=== PATIENT | female | born 2000 | race Caucasian/White ===

== ENCOUNTER 2022-12-25 12:45 | Emergency (ER) | payer MEDICAID, OTHER ==
[~2022-12-25] VITALS: Ht 157.5 cm; Wt 68.0 kg
[2022-12-25] MEDS ORDERED: IBUPROFEN 600 MG (MOTRIN) TAB PO ONE (13:15)
--- NOTE | 2022-12-25 13:15 | ED EENT ---
History of Present Illness General Chief Complaint: Oral/Throat Problems Stated Complaint: SORE THROAT | BILAT EAR ACHE Nursing Triage Note: PT AMBULATE TO TRIAGE WITHOUT DIFFICULTY WITH C/O SORE THROAT AND BILAT EAR PAIN SINCE THURSDAY. PT REPORTS TAKING NYQUIL AND IBUPROFEN FOR THE PAIN. PT REPORTS VOMITING X2 THIS MORNING. Source: patient Exam Limitations: no limitations History of Present Illness Date Seen by Provider: December 25, 2022 Time Seen by Provider: 13:09 Initial Comments Patient is a 22-year-old female who presents to ED with sore throat difficulty swallowing since Thursday. She states her throat hurts especially with eating. Noted redness to the back part of the throat. Patient states she feels feverish with chills and weakness.. She reports right ear and left ear pain with runny nose that started today. she reports coughing up greenish sputum production. Denies any chest pain or shortness of breath. She reports sinus pressure. She states she vomited mucus twice this morning. has been taken NyQuil without much improvement. She states she did feel little bit better yesterday but today symptoms are worse. History of asthma. Denies any wheezing. Denies diarrhea, neck pain, visual changes, headache, abdominal pain, dysuria, hematuria or concern for . Allergies and Home Medications Allergies Coded Allergies: ziprasidone (Verified Allergy, Unknown, 12/25/22) Patient Home Medication List Home Medication List Reviewed: Yes Amoxicillin (Amoxicillin) 875 Mg Tablet, 875 MG PO BID Prescribed by: VALENTINA MATIAS on 12/25/22 1341 Review of Systems Review of Systems Constitutional: chills; No diaphoresis; fever, malaise, weakness Eyes: Denies Blurred Vision, Denies Drainage, Denies Decreased Acuity Ears: Pain; Denies Tinnitus, Denies Bloody Discharge, Denies Clear Discharge Nose: congestion Throat: pain, swelling Respiratory: cough; No short of breath Cardiovascular: No chest pain Gastrointestinal: No abdominal pain, No diarrhea, No nausea; vomiting Musculoskeletal: No back pain, No joint pain Skin: No change in color, No change in hair/nails All Other Systems Reviewed Negative Unless Noted: Yes Past Zadmctm-Abinvu-Ucnrem Hx Patient Social History Tobacco Use?: Yes Tobacco type used: Cigarettes Smoking Status: Light Tobacco Smoker Smokeless Tobacco Frequency: Never a User Use of E-Cig and/or Vaping dev: Yes E-Cig or Vaping type used: Nicotine Use of E-Cig and/or Vaping Robbie: Light User Substance use?: Yes Substance type: Marijuana Substance frequency: Daily Alcohol Use?: Yes Alcohol Frequency: Couple times a week Pt feels they are or have been: No Physical Exam Vital Signs Vital Signs - First Documented 12/25/22 12:54 Temp 36.8 Pulse 82 Resp 17 B/P (MAP) 132/86 (101) O2 Delivery Room Air Height, Weight, BMI Height: '" Weight: lbs. oz. kg; 27.00 BMI Method: General Appearance: WD/WN, no apparent distress Eyes: bilateral eye normal inspection, bilateral eye PERRL, bilateral eye EOMI Ears: left ear TM red, left ear TM bulging Nose: other (Rhinorrhea) Mouth/Throat: other (Oropharynx with erythema, swelling without exudate. Bilateral cervical adenopathy) Neck: non-tender, full range of motion, supple, other (No meningeal signs) Cardiovascular: regular rate, rhythm, no edema, no gallop, no JVD Respiratory: chest non-tender, lungs clear, normal breath sounds, no respiratory distress, no accessory muscle use Gastrointestinal: normal bowel sounds, non tender, soft, no organomegaly Neurologic/Psychiatric: dial polisher II-XII nml as tested, no motor/sensory deficits, alert, normal mood/affect Skin: normal color, warm/dry Progress/Results/Core Measures Results/Orders Lab Results Laboratory Tests Test 12/25/22 13:06 Range/Units Influenza Type A (RT-PCR) Not Detected Not Detecte Influenza Type B (RT-PCR) Not Detected Not Detecte SARS-CoV-2 RNA (RT-PCR) Not Detected Not Detecte Group A Streptococcus Screen POSITIVE H NEGATIVE My Orders Orders - FRANCIS STEWART Rapid Strep A Screen (12/25/22 13:09) Covid 19 Inhouse Test (12/25/22 13:09) Influenza A And B By Pcr (12/25/22 13:09) Ibuprofen Tablet (Motrin Tablet) (12/25/22 13:15) Dexamethasone Oral Soln (Ed) (Decadron I (12/25/22 13:25) Medications Given in ED Current Medications Medications Dose Ordered Sig/Chika Route Start Time Stop Time Status Last Admin Dose Admin Ibuprofen 600 mg ONCE ONCE PO 12/25/22 13:15 12/25/22 13:16 DC 12/25/22 13:13 600 MG Vital Signs/I&O 12/25/22 12/25/22 12:54 12:58 Temp 36.8 Pulse 82 Resp 17 B/P (MAP) 132/86 (101) O2 Delivery Room Air Room Air Blood Pressure Mean: 101 Departure Communication (PCP) Patient presents to the ED with sore throat, runny nose, cough body aches feeling feverish. Symptoms worse today. On exam oropharynx with erythema and swelling. No uvula deviation. Cervical adenopathy. Stable vital signs. Lung sounds clear bilateral. No wheezing. No stridor. Due to her current complaint strep, COVID and influenza was ordered. Strep positive. COVID influenza negative. She states she has been around other people who tested positive for strep. Will discharge with amoxicillin for 10 days. She was given oral Decadron for tonsillar swelling. Tolerate secretions. No evidence of tonsillar abscess. No evidence of Waldemar angina or retropharyngeal abscess. No meningeal signs. No respiratory distress. She does have a left otitis media as well. Antibiotic should cover both. If any worsening symptoms to return back to ED. Follow-up with PCP in 2 to 3 days for reevaluation. She was given ibuprofen for body aches and pain. Continue with Tylenol ibuprofen at home. Mucinex for congestion. Robitussin for cough Impression Primary Impression: Otitis media Additional Impression: Strep pharyngitis Disposition: HOME, SELF-CARE Condition: Stable Departure-Patient Inst. Decision time for Depature: 13:14 Referrals: NO,LOCAL PHYSICIAN (PCP/Family) Primary Care Physician Patient Instructions: Ear Infection ED, Strep Throat (DC) Scripts Amoxicillin (Amoxicillin) 875 Mg Tablet 875 MG PO BID for 10 Days, #20 TAB Prov: FRANCIS STEWART 12/25/22 Work/School Note: Work Release Form Date Seen in the Emergency Department: December 25, 2022 Return to Work: December 28, 2022 FRANCIS STEWART December 25, 2022 13:15
[2022-12-25] MEDS ORDERED: AMOX875T2 PO (13:41)
[2022-12-25 13:45] VITALS: BP 127/89
== END 2022-12-25 13:45 | disposition home or self-care (01) ==
LOC: ER 12:50
DX: H66.92 Otitis media, unspecified, left ear (principal); J02.0 Streptococcal pharyngitis; F17.210 Nicotine dependence, cigarettes, uncomplicated; F17.290 Nicotine dependence, other tobacco product, uncomplicated; Z20.822 Contact with and (suspected) exposure to COVID-19; Z28.310 Unvaccinated for COVID-19
CPT/HCPCS: 87430; 87636; 99283

== ENCOUNTER 2023-02-14 20:47 | Emergency (ER) | payer MEDICAID ==
[~2023-02-14] VITALS: Ht 157.5 cm; Wt 78.9 kg
[~2023-02-14 20:47] MED LIST: AMOX875T2 PO
[2023-02-14 20:50] VITALS: BP 127/86
--- NOTE | 2023-02-14 21:01 | ED General ---
General Stated Complaint: ANXIETY/CHEST PAIN/VOMITING Source of Information: Patient Exam Limitations: No Limitations History of Present Illness Date Seen by Provider: Feb 14, 2023 Time Seen by Provider: 21:01 Initial Comments Patient is a 22-year-old female who presents to the emergency room with a chief complaint of concern for chest pain. Patient states within the last hour hour and a half she was very stressed out and started having her typical anxiety attack. She states she developed midsternal chest pain and back pain. She states she tried to do her normal treatments for her anxiety such as sensory grounding and square breathing, she states that did not seem to work and her symptoms worsened. She started having nausea and vomiting. She complained of shortness of breath. She denies any recent illnesses such as fevers, chills, cough. She has had some sinus congestion. She has had a little diarrhea over the last few days consistent with her menstrual cycle. No dysuria, urgency or frequency. No abnormal vaginal bleeding. No blood in her stool. She is not on daily medications for anxiety. She does have as needed hydroxyzine but has not taken any today. She does not smoke cigarettes. No family history of early coronary artery disease. She is not on medications for blood pressure. She does smoke marijuana daily. Timing/Duration: 1 Hour Severity: Moderate Associated Systoms: Chest Pain, Nausea/Vomiting, Shortness of Air, Other (back pain) Allergies and Home Medications Allergies Coded Allergies: ziprasidone (Verified Allergy, Unknown, 12/25/22) Patient Home Medication List Home Medication List Reviewed: Yes Amoxicillin (Amoxicillin) 875 Mg Tablet, 875 MG PO BID Prescribed by: VALENTINA MATIAS on 12/25/22 1341 Review of Systems Review of Systems Constitutional: see HPI EENTM: nose congestion Cardiovascular: chest pain Gastrointestinal: diarrhea, nausea, vomiting Genitourinary: no symptoms reported : No LMP: Feb 12, 2023 Musculoskeletal: back pain Skin: no symptoms reported Psychiatric/Neurological: Anxiety All Other Systems Reviewed Negative Unless Noted: Yes Physical Exam Vital Signs Vital Signs - First Documented 02/14/23 20:50 Temp 36.1 Pulse 67 Resp 26 B/P (MAP) 127/86 (100) Pulse Ox 99 O2 Delivery Room Air Capillary Refill : Height, Weight, BMI Height: '" Weight: lbs. oz. kg; 27.00 BMI Method: General Appearance: WD/WN, Anxious, Mild Distress (crying/tearful) HEENT: PERRL/EOMI, Moist Mucous Membranes Neck: Normal Inspection Respiratory: Lungs Clear, Normal Breath Sounds, No Accessory Muscle Use, No Respiratory Distress Cardiovascular: Regular Rate, Rhythm, Normal Peripheral Pulses Gastrointestinal: Normal Bowel Sounds, Non Tender, Soft Back: Normal Inspection, CVA Tenderness (L), CVA Tenderness (R) Extremity: Normal Capillary Refill, Normal Inspection, Normal Range of Motion, Non Tender, No Calf Tenderness, No Pedal Edema Neurologic/Psychiatric: Alert, Oriented x3, No Motor/Sensory Deficits, Other (tearful) Skin: Normal Color, Warm/Dry Progress/Results/Core Measures Suspected Sepsis SIRS Temperature: Pulse: Respiratory Rate: Blood Pressure / Mean: Results/Orders My Orders Orders - STEVE RIVERA MD Ekg Tracing (02/14/23 21:09) Chest 1 View, Ap/Pa Only (02/14/23 21:09) Hydroxyzine Cap/Tab (Vistaril) (02/14/23 21:15) Ondansetron Oral Dissolve Tab (Zofran (02/14/23 22:01) Medications Given in ED Current Medications Medications Dose Ordered Sig/Chika Route Start Time Stop Time Status Last Admin Dose Admin Hydroxyzine Pamoate 25 mg ONCE ONCE PO 02/14/23 21:15 02/14/23 21:17 DC 02/14/23 21:32 25 MG Vital Signs/I&O 02/14/23 20:50 Temp 36.1 Pulse 67 Resp 26 B/P (MAP) 127/86 (100) Pulse Ox 99 O2 Delivery Room Air Capillary Refill : Progress Note : Time: 21:50 Progress Note Patient seen and evaluated by me. Evaluation today includes physical exam, single view chest x-ray, EKG. Pertinent physical exam findings, anxious appearing young female, tachypnea, tearful. Stable vital signs. Heart regular, lungs clear, abdomen soft. Differential diagnosis based on history and physical exam panic attack, pleurisy, viral syndrome Independent interpretation of EKG and chest x-ray by me. Chest x-ray shows no focal infiltrates, pneumothorax or effusion. EKG sinus arrhythmia without ST segment change, normal intervals. Patient treated in the emergency department with 25 mg of hydroxyzine. Had improvement of symptoms. Discussed management of panic attacks and anxiety with the patient. Recommended follow-up with primary care physician. Encouraged her to take her hydroxyzine at home as needed. Return precautions provided in both verbal and written format. All questions are sought and answered. ECG Initial ECG Impression Date: Feb 14, 2023 Initial ECG Impression Time: 21:15 Initial ECG Rate: 52 Initial ECG Rhythm: S.Willy Initial ECG Intervals KS interval 130 QRS 115 QTc 418 Comment Sinus arrhythmia noted, no significant ST segment elevation or depression, ?right bundle branch block Diagnostic Imaging Diagonstic Imaging: Xray Plain Films/CT/US/NM/MRI: chest Comments [facility], [facility]. [place], [place] NAME: CRIS [facility]ANGURA [facility] REC#: [id number] PT STATUS: REG ER : 2000 PHYSICIAN: STEVE RIVERA MD ADMIT DATE: 02/14/23/ER Signed Date of Exam:02/14/23 CHEST 1 VIEW, AP/PA ONLY INDICATION: Chest pain, shortness of breath. FINDINGS: The heart size, mediastinal configuration and pulmonary vascularity are within normal limits. There is no pleural effusion, pneumothorax or pneumonia. The osseous structures are unremarkable. IMPRESSION: No acute cardiopulmonary abnormality. Dictated by: Dictated on workstation # [id number] Dict: 02/14/232137 Trans: 02/14/232138 [facility] [id number] Interpreted by: DONNY EMANUEL MD Electronically signed by: DONNY EMANUEL MD 02/14/232138 Departure Impression Primary Impression: Anxiety attack Disposition: 01 HOME, SELF-CARE Condition: Improved Departure-Patient Inst. Decision time for Depature: 21:56 Referrals: NO,LOCAL PHYSICIAN (PCP/Family) Primary Care Physician Patient Instructions: Panic Attack ED Add. Discharge Instructions: Continue your deep breathing/"square breathing" and grounding exercises for anxiety as needed. You can take your hydroxyzine every 4-6 hours as needed as well. You have no concerns at this time for any heart attack or other concerning findings on your chest x-ray or EKG. You should follow-up with the primary care physician. Return to the emergency department for any new, concerning or emergent complaints. STEVE RIVERA MD Feb 14, 2023 21:01
[2023-02-14] MEDS ORDERED: hydrOXYzine (VISTARIL/ATARAX) 25 MG capsule/tablet PO ONE (21:15)
--- NOTE | 2023-02-14 21:40 | Diagnostic Imaging Report ---
INDICATION: Chest pain, shortness of breath. FINDINGS: The heart size, mediastinal configuration and pulmonary vascularity are within normal limits. There is no pleural effusion, pneumothorax or pneumonia. The osseous structures are unremarkable. IMPRESSION: No acute cardiopulmonary abnormality. Dictated by: Dictated on workstation # [id number]
[2023-02-14] MEDS ORDERED: ONDANSETRON 4 MG (ZOFRAN) ORAL DISSOLVE TAB PO STA (22:01)
== END 2023-02-14 22:10 | disposition home or self-care (01) ==
LOC: EDUNIT# 20:47 → ER 20:50
DX: F41.9 Anxiety disorder, unspecified (principal); I49.8 Other specified cardiac arrhythmias; Z28.310 Unvaccinated for COVID-19
CPT/HCPCS: 71045; 93005